=== PATIENT | female | born 1950 | race Two or more races ===

== ENCOUNTER 2019-05-22 05:03 | Inpatient (IN) | payer MEDICARE, OTHER ==
[~2019-05-22] VITALS: Ht 160 cm; Wt 88.0 kg
--- NOTE | 2019-05-22 05:10 | NUR ---
KIM FROM HOME TO ER BED 8. AAOX4. NO RESP DISTRESS NOTED. C/O PALPITATION. PT REPORTS THAT SHE GOT AWOKE WITH A SHARP PAIN ON MID CHEST THEN STARTED TO HAVE PAPITATION. PT WAS NOTED WITH HR OF 160 WITH AFIB. PT REPORT THAT SHE HAD AN ARRHYTHMIA 2 YEARS AGO AND DOES NOT TAKE MEDICATION FOR IT. PT PLACE ON MONITOR. MD AT BEDSIDE FOR EVAL.
[2019-05-22] MEDS ORDERED: DILTIAZEM HCL 50 MG IV ONE (05:24)
[2019-05-22 05:25] LABS: BASOPHILS # (AUTO) 0.1 /CMM (0.0-0.2); BASOPHILS % (AUTO) 0.9 % (0.0-2.0); EOSINOPHILS % (AUTO) 2.1 % (0.0-6.0); HEMATOCRIT 46 % (33-45); HEMOGLOBIN 15.1 g/dL (11.5-14.8); LYMPHOCYTES # (AUTO) 2.2 /CMM (0.8-4.8); MEAN CORPUSCULAR HGB CONC 33 g/dl (31.0-36.0); MEAN CORPUSCULAR VOLUME 86 fL (82-100); MONOCYTES # (AUTO) 0.7 /CMM (0.1-1.30); MONOCYTES % (AUTO) 9.5 % (2.0-12.0); NEUTROPHILS % (AUTO) 56.5 % (43.0-81.0); PLATELET COUNT (AUTO) 204 /CMM (150-450); RED BLOOD CELL COUNT(AUTO) 5.36 MIL/uL (4.0-5.2); WHITE BLOOD COUNT (AUTO) 7.1 K/uL (4.3-11.0)
[2019-05-22] MEDS ORDERED: DILTIAZEM HCL 50 MG IV IV ONE (05:30)
[2019-05-22] MEDS ORDERED: DILTIAZEM HCL IV 125 MG in IV NS 0.9% 100 ML IV PRN ×2 (05:30→07:00)
[2019-05-22 05:36] LABS: CALCIUM, SERUM 9.5 mg/dL (8.5-10.1); CARBON DIOXIDE 18 mmol/L (21-32); CHLORIDE 106 mmol/L (98-107); CREATININE 0.7 mg/dL (0.6-1.3); GLUCOSE 157 mg/dL (74-106); POTASSIUM 4.1 mmol/L (3.5-5.1); SODIUM SERUM 143 mmol/L (136-145); UREA NITROGEN, BLOOD 14 mg/dL (7-18)
--- NOTE | 2019-05-22 05:40 | NUR ---
diltiazem drip on hold per md order. start diltiazem drip when hr remains above 120 for 5 min per md orders.
[2019-05-22 05:42] LABS: ALANINE AMINOTRANSFERASE 55 U/L (12-78); ALKALINE PHOSPHATASE 86 U/L (46-116); ASPARTATE AMINOTRANSFERASE 34 U/L (15-37); BILIRUBIN,DIRECT 0.1 mg/dL (0.0-0.2); BILIRUBIN,TOTAL 0.5 mg/dL (0.2-1.0); TOTAL PROTEIN, SERUM 8.4 g/dL (6.4-8.2)
--- NOTE | 2019-05-22 06:29 | NUR ---
HR OF 89 AND BP OF 116/[address] RUELAS. VERIFIED AND CONFIRMED TO HOLD CARDICARRILLOM ADENIKE.
--- NOTE | 2019-05-22 06:39 | NUR ---
CALLED FOR REPORT. WAS TOLD PT MOVING TO ANOTHER BED. RN SUP AWARE. WAITING FOR RESPONSE
--- NOTE | 2019-05-22 06:40 | NUR ---
WAS TOLD NO NURSES AVAILABLE TO TAKE REPORT ON FLOOR, HAVE TO WAIT UNTIL MORNING SHIFT TO GIVE REPORT. RN SUP AWARE.
--- NOTE | 2019-05-22 06:55 | NUR ---
REPORT GIVEN TO RAINE MERIDA FOR HELLEN. PT IS GOING TO 109. PT TO BE TRANSPORTED TO UNIT ONCE AM SHIFT NURSE IS AVAILABLE.
[2019-05-22] MEDS ORDERED: HYDROCODONE/APAP 5/325MG 1 EACH TABLET PO PRN (07:00)
[2019-05-22] MEDS ORDERED: MAGNESIUM HYDROXIDE 30 ML UDC PO PRN (07:00)
[2019-05-22] MEDS ORDERED: MAG HYDROX/AL HYDROX/SIMETH 30 ML UDC PO PRN (07:00)
[2019-05-22] MEDS ORDERED: ONDANSETRON HCL/PF 4 MG/2 ML VIAL IVP PRN (07:00)
[2019-05-22] MEDS ORDERED: Z GUARD REMEDY 2 OZ OINT TP PRN (07:00)
[2019-05-22] MEDS ORDERED: ACETAMINOPHEN 325 MG TABLET PO PRN (07:00)
[2019-05-22] MEDS ORDERED: ZOLPIDEM TARTRATE 5 MG TABLET PO PRN (07:00)
--- NOTE | 2019-05-22 07:29 | NUR ---
PT TRANSPORTED TO UNIT ON [facility] WITH EMT AND RN AT BEDSIDE W/ ACLS PROTOCOL. NAD NOTED DURING TRANSPORT. PT AMBULATED FROM [facility] TO BED
[2019-05-22] MEDS ORDERED: CHOL100044 PO (07:55)
[2019-05-22] MEDS ORDERED: ASPI-1152 PO (07:55)
[2019-05-22] MEDS ORDERED: ROSU20TA32 PO (07:55)
[2019-05-22 08:00] VITALS: BP 116/79
--- NOTE | 2019-05-22 08:00 | NUR ---
TD/RN AM SHIFT INITIAL NOTES PT ARRIVED EARLIER THIS MORNING VIA GURNEY AMBULATED INTO THE ROOM WITH STEADY GAIT. REPORT GIVEN BY CHARGE NURSE. PT A/O X 4, DENIES CHEST PAIN OR ANY OTHER SYMPTOMS. ON ROOM AIR SATURATING @ 100%, LUNG SOUNDS CLEAR, RESPIRATIONS EVEN & UNLABORED. TELE BOX PLACED NOTED WITH SINUS RHYTHM, HR 85. IV SITE FLUSHED, PATENT WITH NO S/S OF INFECTION, SL. ADMITTING PROTOCOL UNDERWAY, PT IS COMFORTABLE, ORIENTED TO HER SURROUNDINGS. CL WITHIN REACHED AND SAFETY MAINTAINED. DR. MACHUCA NOTIFIED OF PT'S ARRIVAL.
--- NOTE | 2019-05-22 09:24 | NUR ---
TD/RN ROUNDS - DR. REICH UPDATED PT'S CONDITION. PT BEING SEEN & EXAMINED BY DR. REICH. NO NEW ORDER RECEIVED AT THIS TIME. MONITORING CONTINUED.
[2019-05-22] MEDS: CHOLECALCIFEROL 1,000 UNIT TABLET (VIT D3) PO SCH (10:04)
[2019-05-22] MEDS: AMIODARONE HCL 200 MG TABLET PO SCH ×3 (10:04→16:53)
[2019-05-22] MEDS: ATORVASTATIN 40 MG TABLET PO SCH (10:04)
[2019-05-22 10:36] LABS: CHOLESTEROL 334 mg/dL (<200); HDL CHOLESTEROL 52 mg/dL (40-60); LDL 100 mg/dL (0-99); TRIGLYCERIDES 383 mg/dL (30-150)
[2019-05-22 12:00] VITALS: BP_SYST 120; BP_SYST 126; BP_DIAS 74
--- NOTE | 2019-05-22 13:37 | NUR ---
TELE1/RN ROUNDS - DR. MACHUCA UPDATED PT'S CONDITION. PT SEEN & EXAMINED BY DR. MACHUCA. NO NEW ORDER RECEIVED AT THIS TIME. PT DENIES ANY SYMPTOMS. MONITORING CONTINUED.
[2019-05-22 16:00] VITALS: BP 133/82
[2019-05-22] MEDS ORDERED: RIVAROXABAN 10 MG TABLET PO SCH (17:00)
--- NOTE | 2019-05-22 17:28 | NUR ---
TELE1/RN AFTERNOON ROUNDS NO CHANGE OF CONDITION. PT DENIES ANY SYMPTOMS. ON GOING MONITORING.
--- NOTE | 2019-05-22 19:23 | NUR ---
TELE1/RN AM SHIFT END NOTES ALL NEEDS MET. NO ACUTE CHANGE OF CONDITION NOTED SINCE PT WAS ADMITTED THIS MORNING. PT ENDORSED TO PM NURSE TO CONTINUE CARE. CL WITHIN REACHED AND SAFETY MAINTAINED.
[2019-05-22 20:00] VITALS: BP_SYST 121; BP_SYST 151; BP_DIAS 73; BP_DIAS 75
[2019-05-23] VITALS: BP 98/49
[2019-05-23 04:00] VITALS: BP 132/76
[2019-05-23 06:13] LABS: BASOPHILS % (AUTO) 0.5 % (0.0-2.0); EOSINOPHILS % (AUTO) 3.2 % (0.0-6.0); HEMATOCRIT 41 % (33-45); HEMOGLOBIN 13.6 g/dL (11.5-14.8); LYMPHOCYTES % (AUTO) 36.9 % (20.0-44.0); MEAN CORPUSCULAR HGB CONC 34 g/dl (31.0-36.0); MEAN CORPUSCULAR VOLUME 85 fL (82-100); MONOCYTES # (AUTO) 0.6 /CMM (0.1-1.30); MONOCYTES % (AUTO) 7.5 % (2.0-12.0); NEUTROPHILS # (AUTO) 4.2 /CMM (1.8-8.9); NEUTROPHILS % (AUTO) 51.9 % (43.0-81.0); PLATELET COUNT (AUTO) 211 /CMM (150-450); RED BLOOD CELL COUNT(AUTO) 4.77 MIL/uL (4.0-5.2); WHITE BLOOD COUNT (AUTO) 8.1 K/uL (4.3-11.0)
[2019-05-23 06:41] LABS: ALBUMIN 3.7 g/dL (3.4-5.0); BILIRUBIN,TOTAL 0.9 mg/dL (0.2-1.0); CREATININE 0.9 mg/dL (0.6-1.3); MAGNESIUM 2.1 mg/dL (1.8-2.4); PHOSPHORUS 3.9 mg/dL (2.5-4.9); TOTAL PROTEIN, SERUM 7.4 g/dL (6.4-8.2)
[2019-05-23 06:48] LABS: THYROID STIMULATING HORMONE 0.685 uIU/mL (0.358-3.74)
--- NOTE | 2019-05-23 07:30 | NUR ---
TEACHER OF THE EMOTIONALLY DISTURBED AM NOTES RECEIVED PT IN BED, AAO X 3, ON ROOM AIR, NO SOB, RESPIRATION UNLABORED, SINUS RHYTHM HR 60, DENIES ANY CHEST PAIN OR DISCOMFORT AT THIS TIME. RIGHT HAND G 20 FLUSHES WELL SITE CLEAR, AMBULATORY, ON CARDIAC DIET. POC DISCUSSED. VERBALIZED UNDERSTANDINGS. SAFETY MEASURES IN PLACE, BED LOW LOCKED, CALL LIGHT WITHIN T=REACH, WILL CONT TO MONITOR.
[2019-05-23 08:00] VITALS: BP 127/67
[2019-05-23] MEDS: ATORVASTATIN 40 MG TABLET PO SCH (08:24)
[2019-05-23] MEDS: CHOLECALCIFEROL 1,000 UNIT TABLET (VIT D3) PO SCH (08:24)
[2019-05-23] MEDS: AMIODARONE HCL 200 MG TABLET PO SCH (08:24)
--- NOTE | 2019-05-23 09:30 | NUR ---
ENTRY LEVEL ASSISTANT MANAGER NOTES DUE MEDS GIVEN
[2019-05-23] MEDS ORDERED: DRON400T2 PO (10:52)
[2019-05-23 12:00] VITALS: BP 120/72
--- NOTE | 2019-05-23 13:20 | NUR ---
MS RN NOTES PT DISCHARGED TO HOME TODAY PER MD IN STABLE CONDITION. PROVIDED DC INSTRUCTIONS, HEALTH TEACHINGS AND MED RECON/PRESCRIPTION LIST. PATIENT TO FOLLOW UP WITH PCP AND DR HOWARD AND WILL MAKE OWN APPOINTMENT. IV ACCESS REMOVED, PRESSURE APPLIED, NO BLEEDING, DRESSING IN PLACE. ALL BELONGINGS CHECKED AND RETURNED. ALL PAPERWORKS SIGNED. ACCOMPANIED BY DAUGHTER AND [facility] PSYCHIATRIC NURSE TO LOBBY, WILL BE TRANSPORTED TO HOME VIA PRIVATE CAR.
[2019-05-23] MEDS ORDERED: DRONEDARONE HYDROCHLORIDE 400 MG TABLET PO SCH (18:00)
[2019-05-25 05:07] LABS: *SPE A/G RATIO 1.1 (0.7-1.7); *SPE ALBUMIN 3.6 g/dL (2.9-4.4); *SPE ALPHA-1-GLOBULIN 0.3 g/dL (0.0-0.4); *SPE BETA GLOBULIN 1.2 g/dL (0.7-1.3); *SPE GLOBULIN, TOTAL 3.4 g/dL (2.2-3.9); *SPE M-SPIKE Not Observed g/dL (Not Observed)
== END 2019-05-23 13:20 | disposition home or self-care (01) | DRG 310 ==
LOC: ER 05:03 → TELE1 06:38 → TELE-TD 08:22 → TELE1 10:08 → MEDSG1 05-23 11:52
DX: I48.0 Paroxysmal atrial fibrillation (principal); E66.9 Obesity, unspecified; E78.5 Hyperlipidemia, unspecified; Z90.49 Acquired absence of other specified parts of digestive tract; Z87.442 Personal history of urinary calculi; G47.33 Obstructive sleep apnea (adult) (pediatric); Z68.34 Body mass index [BMI] 34.0-34.9, adult
CPT/HCPCS: 36415; 71045-TC; 80048-TC; 80053-TC; 80061-TC; 80076-TC; 83735-TC; 84100-TC; 84155; 84165; 84443-TC; 84484-TC; 85025-TC; 85730-TC; 87081-TC; 93307-TC; 97116-TC; 97530-TC; G0378; J3490; J7030

== ENCOUNTER 2023-05-04 07:57 | Inpatient (IN) | payer MEDICARE, OTHER ==
[~2023-05-04] VITALS: Ht 160 cm; Wt 87.1 kg
[~2023-05-04 07:57] MED LIST: ASPI-1420 PO; CHOL100044 PO; DRON400T6 PO; ROSU20TA32 PO
[2023-05-04 08:38] LABS: BASOPHILS % (AUTO) 0.3 % (0.0-2.0); EOSINOPHILS % (AUTO) 0.2 % (0.0-6.0); HEMATOCRIT 42 % (33-45); HEMOGLOBIN 13.7 g/dL (11.5-14.8); LYMPHOCYTES # (AUTO) 1.3 K/uL (0.8-4.8); LYMPHOCYTES % (AUTO) 9.7 % (20.0-44.0); MEAN CORPUSCULAR HEMOGLOBIN 28 PG (26.0-33.0); MEAN CORPUSCULAR HGB CONC 33 g/dl (31.0-36.0); MEAN CORPUSCULAR VOLUME 86 fL (82-100); MONOCYTES # (AUTO) 0.4 K/uL (0.1-1.30); NEUTROPHILS # (AUTO) 11.5 K/uL (1.8-8.9); NEUTROPHILS % (AUTO) 86.8 % (43.0-81.0); PLATELET COUNT (AUTO) 202 K/uL (150-450); RED BLOOD CELL COUNT(AUTO) 4.88 MIL/uL (4.0-5.2); RED CELL DISTRIBUTION WIDTH 14.8 % (11.5-15.0); WHITE BLOOD COUNT (AUTO) 13.2 K/uL (4.3-11.0)
[2023-05-04 08:59] LABS: ALANINE AMINOTRANSFERASE 64 U/L (12-78); ALBUMIN 3.5 g/dL (3.4-5.0); ALKALINE PHOSPHATASE 87 U/L (46-116); ASPARTATE AMINOTRANSFERASE 53 U/L (15-37); BILIRUBIN,DIRECT 0.2 mg/dL (0.0-0.2); BILIRUBIN,TOTAL 2.6 mg/dL (0.2-1.0); CALCIUM, SERUM 9.2 mg/dL (8.5-10.1); CARBON DIOXIDE 24 mmol/L (21-32); CHLORIDE 103 mmol/L (98-107); CREATININE 0.7 mg/dL (0.6-1.3); GLUCOSE 140 mg/dL (74-106); LIPASE 28 U/L (73-393); POTASSIUM 4.5 mmol/L (3.5-5.1); SODIUM SERUM 136 mmol/L (136-145); TOTAL PROTEIN, SERUM 7.9 g/dL (6.4-8.2); UREA NITROGEN, BLOOD 11 mg/dL (7-18)
[2023-05-04] MEDS ORDERED: ERGO500040 PO (09:40)
[2023-05-04] MEDS ORDERED: RIVA10TA PO (09:40)
[2023-05-04] MEDS ORDERED: AMOX1TAB16 PO (09:40)
[2023-05-04] MEDS ORDERED: NEBI2.5T5 PO (09:40)
[2023-05-04] MEDS ORDERED: ROSU5TAB PO (09:40)
[2023-05-04 09:49] LABS: APPEARANCE,URINE CLEAR (CLEAR); BILIRUBIN,URINE 1+ (NEGATIVE); BLOOD, URINE 1+ Ery/uL (NEGATIVE); COLOR,URINE DARK YELLOW (YELLOW); KETONES,URINE 1+ mg/dL (NEGATIVE); LEUKOCYTE ESTERASE ,URINE NEGATIVE (NEGATIVE); NITRITE, URINE NEGATIVE (NEGATIVE); PH,URINE 6.5 (5.0-8.0); PROTEIN,URINE TRACE mg/dl (NEGATIVE); UGLUCOSE NEGATIVE (NEGATIVE); UROBILINOGEN,URINE 0.2 EU/dL (0.2)
[2023-05-04] MEDS ORDERED: RIVAROXABAN 10 MG TABLET PO SCH (10:00)
[2023-05-04] MEDS ORDERED: ZOLPIDEM TARTRATE 5 MG TABLET PO PRN (10:00)
[2023-05-04] MEDS: PIPERACILLIN /TAZOBACTAM 3.375 G in IV D5W 50 ML IV SCH ×2 (10:00→18:07)
[2023-05-04] MEDS ORDERED: MAGNESIUM HYDROXIDE 30 ML UDC PO PRN (10:00)
[2023-05-04] MEDS ORDERED: MAG HYDROX/AL HYDROX/SIMETH 30 ML UDC PO PRN (10:00)
[2023-05-04] MEDS ORDERED: ONDANSETRON HCL/PF 4 MG/2 ML VIAL IVP PRN (10:00)
[2023-05-04] MEDS ORDERED: Z GUARD REMEDY 4 OZ OINT TP PRN (10:00)
[2023-05-04] MEDS ORDERED: PIPERACILLIN /TAZOBACTAM 3.375 G in IV D5W 50 ML IV ONE (10:00)
[2023-05-04] MEDS ORDERED: MORPHINE SULFATE INJ 2 MG/ML DISP.SYRIN IV ONE (10:00)
[2023-05-04] MEDS ORDERED: ACETAMINOPHEN 325 MG TABLET PO PRN (10:00)
[2023-05-04 10:50] LABS: ADD URINE CULTURE NO; BACTERIA,URINE 1+ /HPF (None Seen); SQUAMOUS EPITHELIAL CELL,UR Moderate /HPF (None Seen); WBC,URINE 0-2 /HPF (0-3)
[2023-05-04 10:51] LABS: MUCUS,URINE Few /LPF (None Seen)
[2023-05-04 11:00] VITALS: BP 100/88; TEMP 98.4; O2SAT 98
[2023-05-04] MEDS: RIVAROXABAN 10 MG TABLET PO SCH (12:41)
[2023-05-04] MEDS: IV NS 0.9% 1,000 ML IV PRN (13:23)
[2023-05-04 17:00] VITALS: BP 125/85; TEMP 98.5; O2SAT 98
[2023-05-04 20:00] VITALS: BP 102/60; TEMP 99; O2SAT 96
[2023-05-04] MEDS: METOPROLOL TARTRATE 25 MG TABLET PO SCH ×2 (21:00→21:13)
[2023-05-04] MEDS ORDERED: ATORVASTATIN 10 MG TABLET PO SCH (22:00)
[2023-05-05] MEDS: PIPERACILLIN /TAZOBACTAM 3.375 G in IV D5W 50 ML IV SCH ×2 (01:11→10:13)
[2023-05-05 04:00] VITALS: BP 111/55; TEMP 97.9; O2SAT 95
[2023-05-05] MEDS: IV NS 0.9% 1,000 ML IV PRN (04:40)
[2023-05-05 06:26] LABS: BASOPHILS % (AUTO) 0.3 % (0.0-2.0); EOSINOPHILS # (AUTO) 0.3 K/uL (0.0-0.7); HEMATOCRIT 38 % (33-45); HEMOGLOBIN 12.6 g/dL (11.5-14.8); LYMPHOCYTES # (AUTO) 2.1 K/uL (0.8-4.8); LYMPHOCYTES % (AUTO) 29.6 % (20.0-44.0); MEAN CORPUSCULAR HEMOGLOBIN 28 PG (26.0-33.0); MEAN CORPUSCULAR HGB CONC 33 g/dl (31.0-36.0); MEAN CORPUSCULAR VOLUME 86 fL (82-100); MONOCYTES # (AUTO) 0.5 K/uL (0.1-1.30); MONOCYTES % (AUTO) 6.7 % (2.0-12.0); NEUTROPHILS # (AUTO) 4.2 K/uL (1.8-8.9); NEUTROPHILS % (AUTO) 59.4 % (43.0-81.0); PLATELET COUNT (AUTO) 200 K/uL (150-450); RED BLOOD CELL COUNT(AUTO) 4.47 MIL/uL (4.0-5.2); RED CELL DISTRIBUTION WIDTH 14.7 % (11.5-15.0)
[2023-05-05 06:52] LABS: ALBUMIN 2.7 g/dL (3.4-5.0); BILIRUBIN,TOTAL 1.6 mg/dL (0.2-1.0); CALCIUM, SERUM 8.5 mg/dL (8.5-10.1); CREATININE 0.7 mg/dL (0.6-1.3); MAGNESIUM 2.3 mg/dL (1.8-2.4); PHOSPHORUS 3.3 mg/dL (2.5-4.9); POTASSIUM 3.3 mmol/L (3.5-5.1); TOTAL PROTEIN, SERUM 6.3 g/dL (6.4-8.2)
[2023-05-05] MEDS: RIVAROXABAN 10 MG TABLET PO SCH (08:30)
[2023-05-05] MEDS: METOPROLOL TARTRATE 25 MG TABLET PO SCH (08:38)
[2023-05-05 12:00] VITALS: BP 110/66; TEMP 97.9; O2SAT 97
[2023-05-05] MEDS ORDERED: POTASSIUM CHLORIDE 20 MEQ POWDER PACKET PO ONE (12:00)
[2023-05-05] MEDS ORDERED: ACET325T53 PO (14:07)
[2023-05-05] MEDS ORDERED: RIVA10TA PO (14:07)
[2023-05-05] MEDS ORDERED: AMOX-430 PO (14:07)
== END 2023-05-05 20:09 | disposition home or self-care (01) | DRG 392 ==
LOC: ER 08:00 → MEDSG1 10:34
PROVIDERS: ADMIT Nurse Practitioner Acute Care; ATTEND Nurse Practitioner Acute Care
DX: K57.92 Diverticulitis of intestine, part unspecified, without perforation or abscess without bleeding (principal); K75.81 Nonalcoholic steatohepatitis (NASH); E66.9 Obesity, unspecified; Z68.34 Body mass index [BMI] 34.0-34.9, adult; K21.9 Gastro-esophageal reflux disease without esophagitis; Z79.82 Long term (current) use of aspirin; Z79.899 Other long term (current) drug therapy; D72.829 Elevated white blood cell count, unspecified; E80.6 Other disorders of bilirubin metabolism; R74.01 Elevation of levels of liver transaminase levels; I10 Essential (primary) hypertension; E78.5 Hyperlipidemia, unspecified; Z90.49 Acquired absence of other specified parts of digestive tract; I48.91 Unspecified atrial fibrillation; Z87.442 Personal history of urinary calculi
CPT/HCPCS: 36415; 71045-TC; 80048-TC; 80053-TC; 80061-TC; 80076-TC; 81001; 83690-TC; 83735-TC; 84100-TC; 85025-TC; A4223; G0378; J2543; J7030; J7050; J7060

== ENCOUNTER 2023-05-20 06:03 | Emergency (ER) | payer MEDICARE, OTHER ==
[~2023-05-20] VITALS: Ht 165.1 cm; Wt 88.0 kg
[~2023-05-20 06:03] MED LIST changes: +ACET325T53 PO; +AMOX-430 PO; -ASPI-1420 PO; -CHOL100044 PO; -DRON400T6 PO; +ERGO500040 PO; +NEBI2.5T5 PO; +RIVA10TA PO; -ROSU20TA32 PO; +ROSU5TAB PO
[2023-05-20] MEDS ORDERED: MORPHINE SULFATE INJ 2 MG/ML DISP.SYRIN IV ONE (06:30)
[2023-05-20] MEDS ORDERED: MORPHINE SULFATE INJ 4 MG/ML DISP.SYRIN ONE (06:30)
[2023-05-20] MEDS ORDERED: ONDANSETRON HCL/PF 4 MG/2 ML VIAL IVP ONE (06:30)
[2023-05-20] MEDS ORDERED: ACETAMINOPHEN ES 500 MG TABLET ONE (06:30)
[2023-05-20] MEDS ORDERED: ONDANSETRON HCL/PF 4 MG/2 ML VIAL ONE (06:30)
[2023-05-20] MEDS ORDERED: ACETAMINOPHEN ES 500 MG TABLET PO ONE (06:30)
[2023-05-20] MEDS ORDERED: KETOROLAC TROMETHAMINE 15 MG/ML VIAL ONE (06:30)
[2023-05-20] MEDS ORDERED: KETOROLAC TROMETHAMINE INJ 30 MG/ML VIAL IV ONE (06:30)
[2023-05-20] MEDS ORDERED: IV NS 0.9% 1,000 ML BAG IV ONE (06:30)
[2023-05-20 07:11] LABS: BASOPHILS # (AUTO) 0.1 K/uL (0.0-0.2); BASOPHILS % (AUTO) 0.8 % (0.0-2.0); EOSINOPHILS # (AUTO) 0.1 K/uL (0.0-0.7); EOSINOPHILS % (AUTO) 0.9 % (0.0-6.0); HEMATOCRIT 38 % (33-45); HEMOGLOBIN 12.7 g/dL (11.5-14.8); LYMPHOCYTES # (AUTO) 1.9 K/uL (0.8-4.8); MEAN CORPUSCULAR HEMOGLOBIN 28 PG (26.0-33.0); MEAN CORPUSCULAR HGB CONC 33 g/dl (31.0-36.0); MEAN CORPUSCULAR VOLUME 85 fL (82-100); MONOCYTES # (AUTO) 0.5 K/uL (0.1-1.30); MONOCYTES % (AUTO) 6.2 % (2.0-12.0); NEUTROPHILS # (AUTO) 4.9 K/uL (1.8-8.9); NEUTROPHILS % (AUTO) 66.1 % (43.0-81.0); PLATELET COUNT (AUTO) 259 K/uL (150-450); RED BLOOD CELL COUNT(AUTO) 4.49 MIL/uL (4.0-5.2); RED CELL DISTRIBUTION WIDTH 14.6 % (11.5-15.0); WHITE BLOOD COUNT (AUTO) 7.4 K/uL (4.3-11.0)
[2023-05-20 07:23] LABS: POTASSIUM 3.9 mmol/L (3.5-5.1)
[2023-05-20 07:24] LABS: CALCIUM, SERUM 9.4 mg/dL (8.5-10.1); CREATININE 0.7 mg/dL (0.6-1.3)
[2023-05-20 07:25] LABS: APPEARANCE,URINE CLEAR (CLEAR); BILIRUBIN,URINE NEGATIVE (NEGATIVE); BLOOD, URINE TRACE-INTA Ery/uL (NEGATIVE); COLOR,URINE YELLOW (YELLOW); KETONES,URINE NEGATIVE (NEGATIVE); LEUKOCYTE ESTERASE ,URINE NEGATIVE (NEGATIVE); NITRITE, URINE NEGATIVE (NEGATIVE); PH,URINE 5.5 (5.0-8.0); PROTEIN,URINE NEGATIVE (NEGATIVE); UGLUCOSE NEGATIVE (NEGATIVE); UROBILINOGEN,URINE 0.2 EU/dL (0.2)
[2023-05-20 07:29] LABS: ALBUMIN 3.7 g/dL (3.4-5.0); BILIRUBIN,DIRECT 0.1 mg/dL (0.0-0.2); BILIRUBIN,TOTAL 0.6 mg/dL (0.2-1.0); TOTAL PROTEIN, SERUM 7.6 g/dL (6.4-8.2)
[2023-05-20 08:40] LABS: ADD URINE CULTURE NO; BACTERIA,URINE Few /HPF (None Seen); RBC,URINE 0-2 /HPF (0-2); SQUAMOUS EPITHELIAL CELL,UR Moderate /HPF (None Seen)
[2023-05-20] MEDS ORDERED: ACET-2605 PO (09:14)
[2023-05-20] MEDS ORDERED: CYCL5TAB PO (09:14)
[2023-05-20] MEDS ORDERED: LIDO30AD10 TP (09:14)
[2023-05-20 10:18] VITALS: BP 135/66; O2SAT 94
== END 2023-05-20 10:43 | disposition home or self-care (01) ==
LOC: ER 06:04
DX: R10.9 Unspecified abdominal pain (principal); I10 Essential (primary) hypertension; E78.5 Hyperlipidemia, unspecified; I48.91 Unspecified atrial fibrillation
CPT/HCPCS: 99285; 96374; 76705; 96375; 96361; 93005; 85025; 80048; 83690; 80076; 85378; 81001; 36415; 84484; J2270; J2405; J7030; J1885

== ENCOUNTER 2023-07-04 13:58 | Emergency (ER) | payer MEDICARE, OTHER ==
[~2023-07-04] VITALS: Ht 167.6 cm; Wt 86.2 kg
[~2023-07-04 13:58] MED LIST changes: +ACET-2605 PO; +CYCL5TAB PO; +LIDO30AD10 TP
[2023-07-04 15:21] LABS: BASOPHILS % (AUTO) 0.5 % (0.0-2.0); EOSINOPHILS # (AUTO) 0.1 K/uL (0.0-0.7); EOSINOPHILS % (AUTO) 0.6 % (0.0-6.0); HEMATOCRIT 42 % (33-45); HEMOGLOBIN 13.8 g/dL (11.5-14.8); LYMPHOCYTES # (AUTO) 2.1 K/uL (0.8-4.8); LYMPHOCYTES % (AUTO) 23.6 % (20.0-44.0); MEAN CORPUSCULAR HEMOGLOBIN 28 PG (26.0-33.0); MEAN CORPUSCULAR HGB CONC 33 g/dl (31.0-36.0); MEAN CORPUSCULAR VOLUME 85 fL (82-100); MONOCYTES # (AUTO) 0.6 K/uL (0.1-1.30); MONOCYTES % (AUTO) 7.2 % (2.0-12.0); NEUTROPHILS % (AUTO) 68.1 % (43.0-81.0); PLATELET COUNT (AUTO) 215 K/uL (150-450); RED BLOOD CELL COUNT(AUTO) 4.92 MIL/uL (4.0-5.2); RED CELL DISTRIBUTION WIDTH 14.6 % (11.5-15.0); WHITE BLOOD COUNT (AUTO) 8.8 K/uL (4.3-11.0)
[2023-07-04 15:29] LABS: CALCIUM, SERUM 9.3 mg/dL (8.5-10.1); CARBON DIOXIDE 23 mmol/L (21-32); CHLORIDE 104 mmol/L (98-107); CREATININE 0.7 mg/dL (0.6-1.3); GLUCOSE 124 mg/dL (74-106); POTASSIUM 3.8 mmol/L (3.5-5.1); SODIUM SERUM 136 mmol/L (136-145); UREA NITROGEN, BLOOD 16 mg/dL (7-18)
[2023-07-04] MEDS ORDERED: PROP10TA10 PO (18:18)
[2023-07-04 18:34] VITALS: BP 126/72; TEMP 98; O2SAT 100
== END 2023-07-04 18:37 | disposition home or self-care (01) ==
LOC: ER 14:06
DX: F41.9 Anxiety disorder, unspecified (principal); R00.2 Palpitations; R42 Dizziness and giddiness; I48.91 Unspecified atrial fibrillation; I10 Essential (primary) hypertension; E78.5 Hyperlipidemia, unspecified; Z79.899 Other long term (current) drug therapy
CPT/HCPCS: 36415; 71045-TC; 80048-TC; 84484-TC; 85025-TC

== ENCOUNTER 2024-01-06 07:50 | Emergency (ER) | payer MEDICARE, OTHER ==
[~2024-01-06] VITALS: Ht 160 cm; Wt 88.0 kg
[~2024-01-06 07:50] MED LIST changes: +PROP10TA10 PO
[2024-01-06 08:39] LABS: BASOPHILS # (AUTO) 0.1 K/uL (0.0-0.2); BASOPHILS % (AUTO) 0.5 % (0.0-2.0); EOSINOPHILS # (AUTO) 0.1 K/uL (0.0-0.7); EOSINOPHILS % (AUTO) 0.8 % (0.0-6.0); HEMATOCRIT 40 % (33-45); HEMOGLOBIN 13.2 g/dL (11.5-14.8); LYMPHOCYTES # (AUTO) 2.3 K/uL (0.8-4.8); MEAN CORPUSCULAR HEMOGLOBIN 28 PG (26.0-33.0); MEAN CORPUSCULAR HGB CONC 33 g/dl (31.0-36.0); MEAN CORPUSCULAR VOLUME 85 fL (82-100); MONOCYTES # (AUTO) 0.7 K/uL (0.1-1.30); MONOCYTES % (AUTO) 6.2 % (2.0-12.0); NEUTROPHILS # (AUTO) 7.9 K/uL (1.8-8.9); NEUTROPHILS % (AUTO) 71.5 % (43.0-81.0); PLATELET COUNT (AUTO) 211 K/uL (150-450); RED BLOOD CELL COUNT(AUTO) 4.65 MIL/uL (4.0-5.2); RED CELL DISTRIBUTION WIDTH 14.2 % (11.5-15.0); WHITE BLOOD COUNT (AUTO) 11.1 K/uL (4.3-11.0)
[2024-01-06 08:47] LABS: CALCIUM, SERUM 9.5 mg/dL (8.5-10.1); CREATININE 0.8 mg/dL (0.6-1.3); POTASSIUM 3.8 mmol/L (3.5-5.1)
[2024-01-06] MEDS ORDERED: IV NS 0.9% 250 ML IV ONE (08:51)
[2024-01-06] MEDS ORDERED: CT SWABBABLE VALVE TRANS SET 1 EA INFUS.SET MC ONE (08:51)
[2024-01-06] MEDS ORDERED: IOHEXOL-300 100 ML VIAL IV ONE (08:51)
[2024-01-06 08:52] LABS: ALBUMIN 3.5 g/dL (3.4-5.0); BILIRUBIN,DIRECT 0.2 mg/dL (0.0-0.2); BILIRUBIN,TOTAL 0.9 mg/dL (0.2-1.0); TOTAL PROTEIN, SERUM 7.7 g/dL (6.4-8.2)
[2024-01-06 09:10] LABS: INR 1.31 (0.91-1.10); PARTIAL THROMBOPLASTIN TIME 38.4 SEC (24.3-34.3); PROTHROMBIN TIME 13.6 SECS (9.2-11.1)
[2024-01-06 10:12] LABS: APPEARANCE,URINE Clear (CLEAR); BILIRUBIN,URINE Negative (NEGATIVE); BLOOD, URINE Trace-intact Ery/uL (NEGATIVE); COLOR,URINE YELLOW (YELLOW); KETONES,URINE Negative (NEGATIVE); LEUKOCYTE ESTERASE ,URINE Trace (NEGATIVE); NITRITE, URINE Negative (NEGATIVE); PH,URINE 6.5 (5.0-8.0); PROTEIN,URINE Negative (NEGATIVE); UGLUCOSE Negative (NEGATIVE); UROBILINOGEN,URINE 0.2 EU/dL (0.2)
[2024-01-06 10:57] LABS: ADD URINE CULTURE NO; BACTERIA,URINE None seen /HPF (None Seen); RBC,URINE 0-2 /HPF (0-2); SQUAMOUS EPITHELIAL CELL,UR Rare /HPF (None Seen)
[2024-01-06] MEDS ORDERED: AMOX-430 PO (12:17)
[2024-01-06 13:18] VITALS: BP 131/88; TEMP 98.1; O2SAT 97
== END 2024-01-06 13:19 | disposition home or self-care (01) ==
LOC: ER 07:52
DX: K57.32 Diverticulitis of large intestine without perforation or abscess without bleeding (principal); R10.84 Generalized abdominal pain; E78.5 Hyperlipidemia, unspecified; I48.91 Unspecified atrial fibrillation; I10 Essential (primary) hypertension; Z79.899 Other long term (current) drug therapy
CPT/HCPCS: 99285; 74177; 85025; 80048; 87086; 83690; 80076; 81001; 36415; 85730; J7050; Q9967

== ENCOUNTER 2024-04-11 02:36 | Emergency (ER) | payer MEDICARE, OTHER ==
[~2024-04-11] VITALS: Ht 160 cm; Wt 88.5 kg
[2024-04-11] MEDS ORDERED: ONDANSETRON HCL/PF 4 MG/2 ML VIAL ONE (02:55)
[2024-04-11] MEDS ORDERED: FAMOTIDINE/PF INJ 20 MG/2 ML VIAL IV ONE (02:56)
[2024-04-11] MEDS: FAMOTIDINE/PF INJ 20 MG/2 ML VIAL IV ONE (03:14)
[2024-04-11] MEDS: IV NS 0.9% 1,000 ML BAG IV ONE (03:14)
[2024-04-11] MEDS: ONDANSETRON HCL/PF 4 MG/2 ML VIAL IVP ONE (03:15)
[2024-04-11 03:23] LABS: BASOPHILS % (AUTO) 0.4 % (0.0-2.0); EOSINOPHILS # (AUTO) 0.1 K/uL (0.0-0.7); HEMATOCRIT 38 % (33-45); HEMOGLOBIN 12.7 g/dL (11.5-14.8); LYMPHOCYTES # (AUTO) 2.4 K/uL (0.8-4.8); LYMPHOCYTES % (AUTO) 35.6 % (20.0-44.0); MEAN CORPUSCULAR HEMOGLOBIN 28 PG (26.0-33.0); MEAN CORPUSCULAR HGB CONC 33 g/dl (31.0-36.0); MEAN CORPUSCULAR VOLUME 86 fL (82-100); MONOCYTES # (AUTO) 0.6 K/uL (0.1-1.30); MONOCYTES % (AUTO) 8.1 % (2.0-12.0); NEUTROPHILS # (AUTO) 3.7 K/uL (1.8-8.9); NEUTROPHILS % (AUTO) 53.9 % (43.0-81.0); PLATELET COUNT (AUTO) 182 K/uL (150-450); RED BLOOD CELL COUNT(AUTO) 4.48 MIL/uL (4.0-5.2); RED CELL DISTRIBUTION WIDTH 14.8 % (11.5-15.0); WHITE BLOOD COUNT (AUTO) 6.8 K/uL (4.3-11.0)
[2024-04-11 04:21] LABS: CALCIUM, SERUM 8.7 mg/dL (8.5-10.1); CARBON DIOXIDE 21 mmol/L (21-32); CHLORIDE 108 mmol/L (98-107); CREATININE 0.8 mg/dL (0.6-1.3); GLUCOSE 172 mg/dL (74-106); POTASSIUM 3.5 mmol/L (3.5-5.1); SODIUM SERUM 142 mmol/L (136-145); UREA NITROGEN, BLOOD 17 mg/dL (7-18)
[2024-04-11 04:27] LABS: ALANINE AMINOTRANSFERASE 35 U/L (12-78); ALBUMIN 3.5 g/dL (3.4-5.0); ALKALINE PHOSPHATASE 77 U/L (46-116); ASPARTATE AMINOTRANSFERASE 18 U/L (15-37); BILIRUBIN,DIRECT 0.1 mg/dL (0.0-0.2); BILIRUBIN,TOTAL 0.7 mg/dL (0.2-1.0); LIPASE 51 U/L (16-77); TOTAL PROTEIN, SERUM 7.2 g/dL (6.4-8.2)
[2024-04-11] MEDS ORDERED: TAMS-12 PO (04:49)
[2024-04-11] MEDS ORDERED: IBUPROFEN 600 MG TABLET ONE (04:57)
[2024-04-11] MEDS ORDERED: TAMSULOSIN 0.4 MG CAP.SR.24H ONE (04:58)
[2024-04-11] MEDS: TAMSULOSIN 0.4 MG CAP.SR.24H PO ONE (05:08)
[2024-04-11] MEDS: IBUPROFEN 600 MG TABLET PO ONE (05:09)
[2024-04-11 05:10] VITALS: BP 131/71; TEMP 98.7; O2SAT 97
[2024-04-11 05:30] LABS: APPEARANCE,URINE CLEAR (CLEAR); BILIRUBIN,URINE NEGATIVE (NEGATIVE); BLOOD, URINE 3+ Ery/uL (NEGATIVE); COLOR,URINE YELLOW (YELLOW); KETONES,URINE NEGATIVE (NEGATIVE); LEUKOCYTE ESTERASE ,URINE NEGATIVE (NEGATIVE); NITRITE, URINE NEGATIVE (NEGATIVE); PROTEIN,URINE NEGATIVE (NEGATIVE); UGLUCOSE NEGATIVE (NEGATIVE); UROBILINOGEN,URINE 0.2 EU/dL (0.2)
[2024-04-11 05:32] LABS: ADD URINE CULTURE NO; BACTERIA,URINE Rare /HPF (None Seen); SQUAMOUS EPITHELIAL CELL,UR Rare /HPF (None Seen)
== END 2024-04-11 05:48 | disposition home or self-care (01) ==
LOC: ER 02:37
DX: N20.0 Calculus of kidney (principal)
CPT/HCPCS: 99285; 74176; 96374; 96361; 96375; 93005; 85025; 80048; 87086; 83690; 80076; 81001; 36415; 84484; J3490; J2405; J7030

== ENCOUNTER 2024-04-14 02:54 | Emergency (ER) | payer MEDICARE, OTHER ==
[~2024-04-14] VITALS: Ht 160 cm; Wt 88.5 kg
[~2024-04-14 02:54] MED LIST changes: +TAMS-12 PO
[2024-04-14] MEDS ORDERED: KETOROLAC TROMETHAMINE INJ 30 MG/ML VIAL ONE (03:20)
[2024-04-14] MEDS ORDERED: ONDANSETRON HCL/PF 4 MG/2 ML VIAL ONE (03:20)
[2024-04-14 03:40] LABS: BASOPHILS % (AUTO) 0.2 % (0.0-2.0); EOSINOPHILS % (AUTO) 0.3 % (0.0-6.0); HEMATOCRIT 38 % (33-45); HEMOGLOBIN 12.8 g/dL (11.5-14.8); LYMPHOCYTES # (AUTO) 1.6 K/uL (0.8-4.8); LYMPHOCYTES % (AUTO) 14.5 % (20.0-44.0); MEAN CORPUSCULAR HEMOGLOBIN 29 PG (26.0-33.0); MEAN CORPUSCULAR HGB CONC 34 g/dl (31.0-36.0); MEAN CORPUSCULAR VOLUME 85 fL (82-100); MONOCYTES # (AUTO) 0.9 K/uL (0.1-1.30); MONOCYTES % (AUTO) 8.5 % (2.0-12.0); NEUTROPHILS # (AUTO) 8.5 K/uL (1.8-8.9); NEUTROPHILS % (AUTO) 76.5 % (43.0-81.0); PLATELET COUNT (AUTO) 197 K/uL (150-450); RED BLOOD CELL COUNT(AUTO) 4.48 MIL/uL (4.0-5.2); RED CELL DISTRIBUTION WIDTH 15.1 % (11.5-15.0); WHITE BLOOD COUNT (AUTO) 11.1 K/uL (4.3-11.0)
[2024-04-14] MEDS: ONDANSETRON HCL/PF 4 MG/2 ML VIAL IVP ONE (03:43)
[2024-04-14] MEDS: IV NS 0.9% 500 ML BAG IV ONE (03:43)
[2024-04-14] MEDS: KETOROLAC TROMETHAMINE 15 MG/ML VIAL IV ONE (03:43)
[2024-04-14 04:00] LABS: ALANINE AMINOTRANSFERASE 30 U/L (12-78); ALBUMIN 3.9 g/dL (3.4-5.0); ALKALINE PHOSPHATASE 79 U/L (46-116); ASPARTATE AMINOTRANSFERASE 14 U/L (15-37); BILIRUBIN,DIRECT 0.1 mg/dL (0.0-0.2); BILIRUBIN,TOTAL 0.9 mg/dL (0.2-1.0); CALCIUM, SERUM 9.3 mg/dL (8.5-10.1); CARBON DIOXIDE 25 mmol/L (21-32); CHLORIDE 102 mmol/L (98-107); CREATININE 0.9 mg/dL (0.6-1.3); GLUCOSE 163 mg/dL (74-106); LIPASE 43 U/L (16-77); POTASSIUM 4.2 mmol/L (3.5-5.1); SODIUM SERUM 139 mmol/L (136-145); TOTAL PROTEIN, SERUM 7.5 g/dL (6.4-8.2); UREA NITROGEN, BLOOD 18 mg/dL (7-18)
[2024-04-14 04:10] LABS: ADD URINE CULTURE NO; APPEARANCE,URINE CLEAR (CLEAR); BACTERIA,URINE Rare /HPF (None Seen); BILIRUBIN,URINE NEGATIVE (NEGATIVE); BLOOD, URINE 3+ Ery/uL (NEGATIVE); COLOR,URINE YELLOW (YELLOW); KETONES,URINE NEGATIVE (NEGATIVE); LEUKOCYTE ESTERASE ,URINE NEGATIVE (NEGATIVE); NITRITE, URINE NEGATIVE (NEGATIVE); PH,URINE 6.5 (5.0-8.0); PROTEIN,URINE NEGATIVE (NEGATIVE); SQUAMOUS EPITHELIAL CELL,UR Few /HPF (None Seen); UGLUCOSE TRACE mg/dL (NEGATIVE); UROBILINOGEN,URINE 0.2 EU/dL (0.2)
[2024-04-14 04:17] LABS: INR 1.05 (0.91-1.10); PARTIAL THROMBOPLASTIN TIME 26.3 SEC (24.3-34.3); PROTHROMBIN TIME 11.1 SECS (9.2-11.1)
[2024-04-14] MEDS ORDERED: ONDA4TAB5 PO (04:17)
[2024-04-14] MEDS ORDERED: HYDR-3972 PO (04:17)
[2024-04-14 06:00] VITALS: BP 129/67; TEMP 98.1; O2SAT 98
== END 2024-04-14 04:45 | disposition home or self-care (01) ==
LOC: ER 03:24
DX: N20.0 Calculus of kidney (principal); I10 Essential (primary) hypertension; E78.5 Hyperlipidemia, unspecified; I48.91 Unspecified atrial fibrillation
CPT/HCPCS: 99285; 74176; 96374; 96375; 85025; 80048; 83690; 80076; 81001; 36415; 85730; J1885; J2405; J7040

== ENCOUNTER 2024-10-07 07:48 | Emergency (ER) | payer MEDICARE, OTHER ==
[~2024-10-07] VITALS: Ht 165.1 cm; Wt 86.2 kg
[~2024-10-07 07:48] MED LIST changes: +HYDR-3972 PO; +ONDA4TAB5 PO
[2024-10-07 07:59] VITALS: TEMP 98.1
[2024-10-07 08:24] LABS: BASOPHILS % (AUTO) 0.6 % (0.0-2.0); EOSINOPHILS # (AUTO) 0.2 K/uL (0.0-0.7); HEMATOCRIT 41 % (33-45); HEMOGLOBIN 13.9 g/dL (11.5-14.8); LYMPHOCYTES # (AUTO) 2.7 K/uL (0.8-4.8); LYMPHOCYTES % (AUTO) 34.8 % (20.0-44.0); MEAN CORPUSCULAR HEMOGLOBIN 29 PG (26.0-33.0); MEAN CORPUSCULAR HGB CONC 34 g/dl (31.0-36.0); MEAN CORPUSCULAR VOLUME 85 fL (82-100); MONOCYTES # (AUTO) 0.6 K/uL (0.1-1.30); MONOCYTES % (AUTO) 7.6 % (2.0-12.0); NEUTROPHILS # (AUTO) 4.3 K/uL (1.8-8.9); PLATELET COUNT (AUTO) 221 K/uL (150-450); RED BLOOD CELL COUNT(AUTO) 4.87 MIL/uL (4.0-5.2); RED CELL DISTRIBUTION WIDTH 14.5 % (11.5-15.0); WHITE BLOOD COUNT (AUTO) 7.9 K/uL (4.3-11.0)
[2024-10-07 08:30] LABS: APPEARANCE,URINE CLEAR (CLEAR); BILIRUBIN,URINE NEGATIVE (NEGATIVE); BLOOD, URINE 1+ Ery/uL (NEGATIVE); COLOR,URINE YELLOW (YELLOW); KETONES,URINE NEGATIVE (NEGATIVE); LEUKOCYTE ESTERASE ,URINE NEGATIVE (NEGATIVE); NITRITE, URINE NEGATIVE (NEGATIVE); PH,URINE 5.5 (5.0-8.0); PROTEIN,URINE NEGATIVE (NEGATIVE); UGLUCOSE NEGATIVE (NEGATIVE); UROBILINOGEN,URINE 0.2 EU/dL (0.2)
[2024-10-07 08:32] LABS: CALCIUM, SERUM 10.1 mg/dL (8.5-10.1); CREATININE 0.7 mg/dL (0.6-1.3); POTASSIUM 3.8 mmol/L (3.5-5.1)
[2024-10-07 08:38] LABS: BILIRUBIN,DIRECT 0.1 mg/dL (0.0-0.2); BILIRUBIN,TOTAL 0.6 mg/dL (0.2-1.0); TOTAL PROTEIN, SERUM 7.9 g/dL (6.4-8.2)
[2024-10-07] MEDS: IV NS 0.9% 1,000 ML BAG IV ONE (08:42)
[2024-10-07 08:57] LABS: ADD URINE CULTURE NO; BACTERIA,URINE None seen /HPF (None Seen); RBC,URINE 0-2 /HPF (0-2); WBC,URINE 0-2 /HPF (0-3)
[2024-10-07] MEDS ORDERED: METH4TAB17 PO (09:37)
[2024-10-07] MEDS ORDERED: KETOROLAC TROMETHAMINE 15 MG/ML VIAL ONE (09:37)
[2024-10-07] MEDS ORDERED: CYCLOBENZAPRINE 10 MG TABLET ONE (09:38)
[2024-10-07] MEDS ORDERED: LIDOCAINE 5% (PATCH) 1 EA PATCH TP ONE (09:38)
[2024-10-07] MEDS: LIDOCAINE 5% (PATCH) 1 EA PATCH TP STA (09:46)
[2024-10-07] MEDS: CYCLOBENZAPRINE 10 MG TABLET PO ONE (09:46)
[2024-10-07] MEDS: KETOROLAC TROMETHAMINE 15 MG/ML VIAL IV ONE (09:48)
[2024-10-07 10:15] VITALS: BP 115/79; O2SAT 96
== END 2024-10-07 10:16 | disposition home or self-care (01) ==
LOC: ER 07:57
DX: M54.9 Dorsalgia, unspecified (principal); E78.5 Hyperlipidemia, unspecified; I10 Essential (primary) hypertension; I48.91 Unspecified atrial fibrillation; Z79.01 Long term (current) use of anticoagulants; Z79.899 Other long term (current) drug therapy
CPT/HCPCS: 99285; 96374; 76770; 96361; 85025; 80048; 83690; 80076; 81001; 36415; J1885; J7030

== ENCOUNTER 2025-06-14 19:03 | Emergency (ER) | payer MEDICARE, OTHER ==
[~2025-06-14] VITALS: Ht 165.1 cm; Wt 83.5 kg
[~2025-06-14 19:03] MED LIST changes: +METH4TAB17 PO
[2025-06-14 20:17] LABS: PLATELET COUNT (AUTO) 183 K/uL (150-450); RED BLOOD CELL COUNT(AUTO) 4.55 MIL/uL (4.0-5.2); RED CELL DISTRIBUTION WIDTH 14.8 % (11.5-15.0); WHITE BLOOD COUNT (AUTO) 10.4 K/uL (4.3-11.0)
[2025-06-14 20:33] LABS: ASPARTATE AMINOTRANSFERASE 24.0 U/L (15-37); CALCIUM, SERUM 8.7 mg/dL (8.5-10.1); CREATININE 0.7 mg/dL (0.6-1.3); SODIUM SERUM 140.0 mmol/L (136-145); TOTAL PROTEIN, SERUM 7.2 g/dL (6.4-8.2); UREA NITROGEN, BLOOD 19.0 mg/dL (7-18)
[2025-06-14 20:42] LABS: BLOOD, URINE 3+ Ery/uL (NEGATIVE); LEUKOCYTE ESTERASE ,URINE NEGATIVE (NEGATIVE); NITRITE, URINE NEGATIVE (NEGATIVE); UGLUCOSE NEGATIVE (NEGATIVE)
[2025-06-14 20:43] LABS: APPEARANCE,URINE SLIGHTLY CLOUDY (CLEAR)
[2025-06-14] MEDS ORDERED: ACETAMINOPHEN 325 MG TABLET ONE (20:43)
[2025-06-14] MEDS: ACETAMINOPHEN 325 MG TABLET PO ONE (20:46)
[2025-06-14 21:00] LABS: ADD URINE CULTURE NO; SQUAMOUS EPITHELIAL CELL,UR Moderate /HPF (None Seen)
[2025-06-14] MEDS: IV NS 0.9% 1,000 ML BAG IV ONE (21:43)
[2025-06-14] MEDS ORDERED: MORPHINE SULFATE INJ 4 MG/ML DISP.SYRIN ONE (21:45)
[2025-06-14] MEDS: MORPHINE SULFATE INJ 2 MG/ML DISP.SYRIN IV ONE (21:48)
[2025-06-14] MEDS ORDERED: ONDANSETRON HCL/PF 4 MG/2 ML VIAL ONE (22:07)
[2025-06-14] MEDS: ONDANSETRON HCL/PF 4 MG/2 ML VIAL IV ONE (22:14)
[2025-06-14] MEDS ORDERED: ACET325C7 PO (22:34)
[2025-06-14] MEDS ORDERED: AMOX-430 PO (22:34)
[2025-06-14 22:47] VITALS: BP 128/70; TEMP 99.1; O2SAT 96
[2025-06-15] MEDS ORDERED: NAPR-1164 PO (17:40)
[2025-06-15] MEDS ORDERED: TAMS-12 PO (17:40)
[2025-06-20] MEDS ORDERED: RIVA10TA PO (15:01)
[2025-06-20] MEDS ORDERED: AMIO200T7 PO (15:01)
== END 2025-06-14 22:48 | disposition home or self-care (01) ==
LOC: ER 19:09
DX: K57.32 Diverticulitis of large intestine without perforation or abscess without bleeding (principal); M54.50 Low back pain, unspecified; E78.5 Hyperlipidemia, unspecified; I48.91 Unspecified atrial fibrillation; Z79.01 Long term (current) use of anticoagulants; Z87.442 Personal history of urinary calculi; Z79.899 Other long term (current) drug therapy
CPT/HCPCS: 99285; 74176; 96374; 96361; 96375; 85025; 83690; 81001; 36415; 80053; J2270; J2405; J7030

== ENCOUNTER 2025-06-15 15:46 | Emergency (ER) | payer MEDICARE, OTHER ==
[~2025-06-15] VITALS: Ht 165.1 cm; Wt 90.3 kg
[~2025-06-15 15:46] MED LIST changes: +ACET325C7 PO
[2025-06-15] MEDS: MORPHINE SULFATE INJ 2 MG/ML DISP.SYRIN IV ONE (16:00)
[2025-06-15] MEDS: ONDANSETRON HCL/PF 4 MG/2 ML VIAL IVP ONE (16:00)
[2025-06-15] MEDS: IV NS 0.9% 1,000 ML BAG IV ONE (16:00)
[2025-06-15] MEDS ORDERED: MORPHINE SULFATE INJ 4 MG/ML DISP.SYRIN ONE (16:21)
[2025-06-15] MEDS ORDERED: ONDANSETRON HCL/PF 4 MG/2 ML VIAL ONE (16:21)
[2025-06-15] MEDS ORDERED: PIPERACI/TAZO 3.375GM/D5W 50ML PB IV ONE (16:21)
[2025-06-15] MEDS: PIPERACILLIN /TAZOBACTAM 3.375 G in IV D5W 50 ML IV ONE (16:30)
[2025-06-15 16:32] LABS: PLATELET COUNT (AUTO) 203 K/uL (150-450); RED BLOOD CELL COUNT(AUTO) 4.66 MIL/uL (4.0-5.2); RED CELL DISTRIBUTION WIDTH 14.7 % (11.5-15.0); WHITE BLOOD COUNT (AUTO) 8.3 K/uL (4.3-11.0)
[2025-06-15 16:50] LABS: LACTIC ACID 2.0 mmol/L (0.4-2.0)
[2025-06-15 16:52] LABS: CALCIUM, SERUM 8.6 mg/dL (8.5-10.1); CREATININE 0.8 mg/dL (0.6-1.3); SODIUM SERUM 142 mmol/L (136-145); UREA NITROGEN, BLOOD 16 mg/dL (7-18)
[2025-06-15] MEDS ORDERED: TAMS-12 PO (17:40)
[2025-06-15] MEDS ORDERED: NAPR-1164 PO (17:40)
[2025-06-15] MEDS ORDERED: TAMSULOSIN 0.4 MG CAP.SR.24H ONE (18:01)
[2025-06-15] MEDS: TAMSULOSIN 0.4 MG CAP.SR.24H PO ONE (18:08)
[2025-06-15] MEDS: KETOROLAC TROMETHAMINE 15 MG/ML VIAL IV ONE (18:08)
[2025-06-15 18:13] VITALS: BP 134/76; TEMP 98.1; O2SAT 99
== END 2025-06-15 18:13 | disposition home or self-care (01) ==
LOC: ER 16:05
DX: K57.32 Diverticulitis of large intestine without perforation or abscess without bleeding (principal); N13.2 Hydronephrosis with renal and ureteral calculous obstruction; I48.91 Unspecified atrial fibrillation; I11.9 Hypertensive heart disease without heart failure; E78.5 Hyperlipidemia, unspecified; Z79.01 Long term (current) use of anticoagulants; Z79.899 Other long term (current) drug therapy; Z87.442 Personal history of urinary calculi
CPT/HCPCS: 99285; 74176; 96365; 96375; 85025; 80048; 83605; 36415; 87081; 87040 ×2; J2270; J2405; J2543 ×2; J7060

== ENCOUNTER 2025-06-19 06:03 | Inpatient (IN) | payer MEDICARE, OTHER ==
[~2025-06-19] VITALS: Ht 165.1 cm; Wt 88.0 kg
[~2025-06-19 06:03] MED LIST changes: +NAPR-1164 PO
[2025-06-19] MEDS ORDERED: METOPROLOL TARTRATE INJ 5 MG/5 ML AMPUL ONE ×2 (06:11→06:26)
[2025-06-19] MEDS: METOPROLOL TARTRATE INJ 5 MG/5 ML AMPUL IV ONE ×3 (06:25→06:55)
[2025-06-19 06:29] LABS: CALCIUM, SERUM 9.9 mg/dL (8.5-10.1); CREATININE 0.6 mg/dL (0.6-1.3); PLATELET COUNT (AUTO) 228 K/uL (150-450); RED BLOOD CELL COUNT(AUTO) 4.58 MIL/uL (4.0-5.2); RED CELL DISTRIBUTION WIDTH 15.1 % (11.5-15.0); SODIUM SERUM 142.0 mmol/L (136-145); UREA NITROGEN, BLOOD 17.0 mg/dL (7-18); WHITE BLOOD COUNT (AUTO) 5.9 K/uL (4.3-11.0)
[2025-06-19] MEDS: IV NS 0.9% 500 ML BAG IV ONE (07:36)
[2025-06-19] MEDS ORDERED: DILT180T PO (07:47)
[2025-06-19] MEDS ORDERED: ACETAMINOPHEN ES 500 MG TABLET PO PRN (08:00)
[2025-06-19] MEDS ORDERED: LIDOCAINE 5% (PATCH) 1 EA PATCH TP PRN (08:00)
[2025-06-19] MEDS ORDERED: HYDROCODONE/APAP 5/325MG TABLET PO PRN (08:00)
[2025-06-19] MEDS ORDERED: MAGNESIUM HYDROXIDE 30 ML UDC PO PRN (08:00)
[2025-06-19] MEDS ORDERED: ACETAMINOPHEN 325 MG TABLET PO PRN ×2 (08:00)
[2025-06-19] MEDS ORDERED: Z GUARD REMEDY 4 OZ OINT TP PRN ×2 (08:00→08:30)
[2025-06-19] MEDS ORDERED: MAG HYDROX/AL HYDROX/SIMETH 30 ML UDC PO PRN (08:00)
[2025-06-19] MEDS ORDERED: ONDANSETRON HCL/PF 4 MG/2 ML VIAL IVP PRN (08:00)
[2025-06-19] MEDS ORDERED: RIVAROXABAN 10 MG TABLET PO SCH (09:00)
[2025-06-19] MEDS: POTASSIUM CHLORIDE 20 MEQ TAB.PRT.SR PO ONE (11:07)
[2025-06-19] MEDS: TAMSULOSIN 0.4 MG CAP.SR.24H PO SCH (11:08)
[2025-06-19] MEDS: RIVAROXABAN 10 MG TABLET PO SCH (11:08)
[2025-06-19 13:00] VITALS: BP 124/50; TEMP 97.6; O2SAT 97
[2025-06-19] MEDS: AMIODARONE 150 MG in IV D5W 100 ML IV ONE (14:17)
[2025-06-19 17:00] VITALS: BP 112/65; TEMP 97.7; O2SAT 94
[2025-06-19] MEDS: AMIODARONE 450 MG in IV D5W 241 ML IV PRN (17:44)
[2025-06-19 20:00] VITALS: BP 110/55; TEMP 98.1; O2SAT 96
[2025-06-20] VITALS: BP 104/61; TEMP 97.7; O2SAT 96
[2025-06-20 04:00] VITALS: BP 106/55; TEMP 97.2; O2SAT 100
[2025-06-20 08:00] VITALS: BP 128/62; TEMP 98.1; O2SAT 100
[2025-06-20 08:27] VITALS: BP 128/62; TEMP 98.1; O2SAT 95
[2025-06-20 12:00] VITALS: BP 121/65; TEMP 97.7; O2SAT 100
[2025-06-20] MEDS: AMIODARONE HCL 200 MG TABLET PO SCH (13:56)
[2025-06-20] MEDS ORDERED: AMIO200T7 PO (15:01)
[2025-06-20] MEDS ORDERED: RIVA10TA PO (15:01)
[2025-06-20 16:19] VITALS: BP 119/73; TEMP 97.7; O2SAT 95
== END 2025-06-20 16:38 | disposition home or self-care (01) | DRG 309 ==
LOC: ER 06:05 → TELE1 08:25 → TELE-TD 14:08 → TELE1 06-20 11:30
PROVIDERS: ADMIT Internal Medicine; ATTEND Nurse Practitioner Acute Care
DX: I48.0 Paroxysmal atrial fibrillation (principal); D68.59 Other primary thrombophilia; Z79.01 Long term (current) use of anticoagulants; I10 Essential (primary) hypertension; E78.5 Hyperlipidemia, unspecified; E87.6 Hypokalemia; Z87.442 Personal history of urinary calculi; G47.33 Obstructive sleep apnea (adult) (pediatric)
CPT/HCPCS: 36415; 71045-TC; 80048-TC; 84484-TC; 85025-TC; 93307-TC; G0378; J0282; J3490; J7040; J7060